=== PATIENT | male | born 1945 | race Caucasian/White ===

== ENCOUNTER 2021-07-16 16:25 | Observation (INO) ==
[2021-07-16] MEDS ORDERED: Mag Hydrox/Al Hydrox/Simeth 30 ML UDC PO PRN (17:58)
[2021-07-16] MEDS ORDERED: Naloxone 0.4 MG/ML INJ IVP PRN (17:58)
[2021-07-16] MEDS ORDERED: Ondansetron ODT 4 MG TAB.RAPDIS SL PRN (17:58)
[2021-07-16] MEDS ORDERED: MOM Conc 10 ML UD.LIQ PO PRN (17:58)
[2021-07-16] MEDS ORDERED: Perflutren Lipid Microsphere 1.3 ML in 0.9 % Sodium Chloride 8.7 ML IVP PRN (18:00)
[2021-07-16] MEDS ORDERED: *HR* Enoxaparin 40 MG/0.4 ML SYRINGE SQ ONE (18:00)
[2021-07-16] MEDS ORDERED: Gabapentin 400 MG CAPSULE PO PRN (18:01)
[2021-07-16] MEDS ORDERED: *HR* HYDROcodone/Acet 5/325 mg TABLET PO PRN (18:01)
[2021-07-16] MEDS ORDERED: tiZANidine 4 MG TABLET PO PRN (18:01)
[2021-07-16] MEDS: *HR* OxyCODONE/APAP 5/325 TABLET PO PRN (19:20)
[2021-07-16] MEDS ORDERED: *HR* Heparin 5,000 UNIT/ML VIAL IVP PRN ×2 (19:23)
[2021-07-16] MEDS ORDERED: *HR* Heparin 5,000 UNIT/ML VIAL IVP ONE (19:23)
[2021-07-16] MEDS ORDERED: Morphine Sulfate 2 MG/ML SYRINGE IVP PRN (19:24)
[2021-07-16] MEDS ORDERED: Heparin 25,000UNIT/250ML 1/2NS 25,000 UNIT/250 ML IV.SOLN IVC SCH (19:30)
[2021-07-16 19:55] LABS: Hematocrit 41.1 % (37.5-50.1); Hemoglobin 13.1 g/dL (12.9-16.9); Mean Corpuscular HGB Conc 31.9 g/dL (31.6-35.5); Mean Corpuscular Hemoglobin 29.9 pg (28.0-33.3); Mean Corpuscular Volume 93.8 fL (83.0-100.0); Mean Platelet Volume 10.7 fL (9.4-12.4); Platelet Count 257 K/mcL (140-400); Red Blood Count 4.38 M/mcL (4.19-5.50); Red Cell Distribution Width 13.2 % (11.5-14.5); White Blood Count 7.4 K/mcL (4.3-11.1)
[2021-07-16 20:02] LABS: Heparin anti-factor XA UFH < 0.04 IU/mL (0.30-0.70)
[2021-07-16 20:03] LABS: INR 0.9; Prothrombin Time 10.4 Seconds (9.4-12.1)
[2021-07-16] MEDS: Melatonin 3 MG TABLET PO PRN (22:50)
[2021-07-17] MEDS: *HR* OxyCODONE/APAP 5/325 TABLET PO PRN ×4 (02:34→21:22)
[2021-07-17 03:24] LABS: Hematocrit 40.8 % (37.5-50.1); Hemoglobin 13.4 g/dL (12.9-16.9); Mean Corpuscular HGB Conc 32.8 g/dL (31.6-35.5); Mean Corpuscular Hemoglobin 30.3 pg (28.0-33.3); Mean Corpuscular Volume 92.3 fL (83.0-100.0); Platelet Count 263 K/mcL (140-400); Red Blood Count 4.42 M/mcL (4.19-5.50); Red Cell Distribution Width 13.2 % (11.5-14.5); White Blood Count 10.1 K/mcL (4.3-11.1)
[2021-07-17 04:02] LABS: Alanine Aminotransferase 17 Units/L (7-52); Albumin/Globulin Ratio 1.9 (1.1-2.2); Alkaline Phosphatase 53 Units/L (34-104); Aspartate Amino Transferase 34 Units/L (13-39); BUN/Creatinine Ratio 22 (6-26); Bilirubin,Total 0.4 mg/dL (0.3-1.0); Blood Urea Nitrogen 22 mg/dL (8-23); Carbon Dioxide 22 mEq/L (23-29); Chloride 109 mEq/L (98-107); Chol/HDL Ratio 3.5 (0-4.9); Cholesterol 229 mg/dL (< 200); Globulin 2.1 g/dL (2.4-3.5); Glucose 99 mg/dL (70-105); HDL Cholesterol 66 mg/dL (40-59); LDL Cholesterol,Calculated 139 mg/dL (< 100); Osmolality,Calculated 293 (280-300); Potassium 4.1 mEq/L (3.5-5.1); Sodium 140 mEq/L (136-145); Total Protein 6.1 g/dL (6.4-8.9); Triglycerides 120 mg/dL (< 150); eGFR For African Americans > 60 (> 60); eGFR For Non-African Americans > 60 (> 60)
[2021-07-17] MEDS: carvediloL 6.25 MG TABLET PO SCH ×2 (08:49→17:18)
[2021-07-17] MEDS: Aspirin 81 MG TAB.CHEW PO SCH (08:49)
[2021-07-17] MEDS ORDERED: *HR* FentaNYL (PF) 100 MCG/2 ML VIAL ONE (11:40)
[2021-07-17] MEDS ORDERED: ISOVUE-370 200 ML INFUS..BTL ONE ×2 (11:41→12:43)
[2021-07-17] MEDS ORDERED: 0.9 % Sodium Chloride 1,000 ML ONE (11:41)
[2021-07-17] MEDS ORDERED: *HR* Heparin 10,000 UNIT/10 ML VIAL ONE (11:41)
[2021-07-17] MEDS ORDERED: Heparin 1,000 UNITS/500 mL 500 ML ONE (11:41)
[2021-07-17] MEDS ORDERED: *HR* Midazolam HCl 2 MG/2 ML VIAL ONE ×2 (11:41→12:37)
[2021-07-17] MEDS ORDERED: Nitroglycerin 1,000 MCG/5 ML VIAL IV ONE (11:41)
[2021-07-17] MEDS ORDERED: *HR* Bivalirudin 250 MG VIAL IVC ONE (12:35)
[2021-07-17] MEDS ORDERED: *HR* Adenosine 6 MG/2 ML VIAL IVP ONE (12:41)
[2021-07-17] MEDS ORDERED: *HR* Atropine Sulfate 1 MG/10 ML SYRINGE ONE (12:45)
[2021-07-17] MEDS ORDERED: 0.9 % Sodium Chloride 1,000 ML IVC SCH (13:45)
[2021-07-17] MEDS: Melatonin 3 MG TABLET PO PRN (21:22)
[2021-07-18] MEDS: *HR* OxyCODONE/APAP 5/325 TABLET PO PRN (03:52)
[2021-07-18 03:54] VITALS: O2SAT 96
[2021-07-18 05:28] LABS: Hematocrit 37.6 % (37.5-50.1); Hemoglobin 12.1 g/dL (12.9-16.9); Mean Corpuscular HGB Conc 32.2 g/dL (31.6-35.5); Mean Corpuscular Volume 93.1 fL (83.0-100.0); Mean Platelet Volume 10.8 fL (9.4-12.4); Platelet Count 231 K/mcL (140-400); Red Blood Count 4.04 M/mcL (4.19-5.50); Red Cell Distribution Width 13.2 % (11.5-14.5); White Blood Count 5.6 K/mcL (4.3-11.1)
[2021-07-18 05:50] LABS: BUN/Creatinine Ratio 15 (6-26); Blood Urea Nitrogen 15 mg/dL (8-23); Calcium 8.3 mg/dL (8.6-10.3); Carbon Dioxide 25 mEq/L (23-29); Chloride 109 mEq/L (98-107); Glucose 89 mg/dL (70-105); Osmolality,Calculated 288 (280-300); Potassium 3.9 mEq/L (3.5-5.1); Sodium 139 mEq/L (136-145); eGFR For African Americans > 60 (> 60); eGFR For Non-African Americans > 60 (> 60)
[2021-07-18 06:59] VITALS: BP 121/66; PULSE 59; TEMP 98.3
[2021-07-18] MEDS: carvediloL 6.25 MG TABLET PO SCH (07:33)
[2021-07-18] MEDS: Aspirin 81 MG TAB.CHEW PO SCH (07:33)
[2021-07-18 09:09] LABS: Estimated Average Glucose 108 mg/dl; Hemoglobin A1C 5.4 %
== END 2021-07-18 11:26 | disposition home or self-care (01) ==
LOC: 3BNU
PROVIDERS: ADMIT Internal Medicine; ATTEND Internal Medicine

== ENCOUNTER 2021-08-15 09:11 | Observation (INO) ==
[2021-08-15] MEDS ORDERED: Aspirin 81 MG TAB.CHEW PO ONE (09:15)
[2021-08-15] MEDS ORDERED: *HR* HYDROcodone/Acet 10/325 mg TABLET PO ONE (09:19)
[2021-08-15 09:47] LABS: Basophils # 0.1 K/mcL (0.0-0.2); Basophils % 0.9 %; Eosinophils # 0.3 K/mcL (0.0-0.6); Eosinophils % 4.2 %; Hematocrit 41.7 % (37.5-50.1); Immature Granulocytes % 0.6 % (0-4); Lymphocytes # 1.1 K/mcL (0.6-4.6); Mean Corpuscular HGB Conc 31.2 g/dL (31.6-35.5); Mean Corpuscular Hemoglobin 29.2 pg (28.0-33.3); Mean Corpuscular Volume 93.7 fL (83.0-100.0); Mean Platelet Volume 10.7 fL (9.4-12.4); Monocytes # 0.7 K/mcL (0.0-1.3); Monocytes % 10.5 %; Neutrophils # 4.3 K/mcL (1.6-8.9); Platelet Count 283 K/mcL (140-400); Red Blood Count 4.45 M/mcL (4.19-5.50); Red Cell Distribution Width 12.9 % (11.5-14.5); Segmented Neutrophils % 66.8 %; White Blood Count 6.5 K/mcL (4.3-11.1)
[2021-08-15 09:57] LABS: Prothrombin Time 10.8 Seconds (9.4-12.1)
[2021-08-15 09:59] LABS: Activated Partial Thrombo Time 33.4 Seconds (26.0-36.0)
[2021-08-15 10:18] LABS: BUN/Creatinine Ratio 24 (6-26); Blood Urea Nitrogen 27 mg/dL (8-23); Calcium 8.8 mg/dL (8.6-10.3); Carbon Dioxide 23 mEq/L (23-29); Chloride 109 mEq/L (98-107); Glucose 105 mg/dL (70-105); Osmolality,Calculated 291 (280-300); Potassium 4.4 mEq/L (3.5-5.1); Sodium 138 mEq/L (136-145); Troponin I < 0.03 ng/mL (< 0.04); eGFR For African Americans > 60 (> 60); eGFR For Non-African Americans > 60 (> 60)
[2021-08-15] MEDS ORDERED: Ondansetron 4 MG/2 ML VIAL IVP PRN (10:30)
[2021-08-15] MEDS ORDERED: Naloxone 0.4 MG/ML INJ IVP PRN (10:30)
[2021-08-15] MEDS ORDERED: Acetaminophen 325 MG TABLET PO PRN (10:30)
[2021-08-15] MEDS ORDERED: carvediloL 6.25 MG TABLET PO SCH (10:33)
[2021-08-15] MEDS: amLODIPine 5 MG TABLET PO SCH (11:22)
[2021-08-15] MEDS ORDERED: *HR* OxyCODONE Immed Rel 5 MG TABLET PO PRN (14:54)
[2021-08-15] MEDS: *HR* OxyCODONE Immed Rel 5 MG TABLET PO PRN ×2 (15:22→20:24)
[2021-08-16] MEDS: carvediloL 6.25 MG TABLET PO SCH ×2 (00:39→07:34)
[2021-08-16] MEDS: *HR* OxyCODONE Immed Rel 5 MG TABLET PO PRN ×2 (00:39→06:15)
[2021-08-16] MEDS ORDERED: *HR* Enoxaparin 40 MG/0.4 ML SYRINGE SQ SCH (06:00)
[2021-08-16 07:25] LABS: Hematocrit 40.5 % (37.5-50.1); Hemoglobin 13.2 g/dL (12.9-16.9); Mean Corpuscular HGB Conc 32.6 g/dL (31.6-35.5); Mean Corpuscular Hemoglobin 29.9 pg (28.0-33.3); Mean Corpuscular Volume 91.6 fL (83.0-100.0); Mean Platelet Volume 10.9 fL (9.4-12.4); Platelet Count 278 K/mcL (140-400); Red Blood Count 4.42 M/mcL (4.19-5.50)
[2021-08-16] MEDS: amLODIPine 5 MG TABLET PO SCH (07:34)
[2021-08-16 08:09] LABS: BUN/Creatinine Ratio 20 (6-26); Blood Urea Nitrogen 21 mg/dL (8-23); Calcium 8.7 mg/dL (8.6-10.3); Carbon Dioxide 22 mEq/L (23-29); Chloride 107 mEq/L (98-107); Glucose 106 mg/dL (70-105); Osmolality,Calculated 291 (280-300); Potassium 4.2 mEq/L (3.5-5.1); Sodium 139 mEq/L (136-145); eGFR For African Americans > 60 (> 60); eGFR For Non-African Americans > 60 (> 60)
[2021-08-16] MEDS ORDERED: Aspirin 81 MG TAB.CHEW PO SCH (09:00)
[2021-08-16] MEDS ORDERED: Ranolazine 500 MG TAB.ER.12H PO SCH (10:15)
[2021-08-16 10:55] VITALS: BP 115/73; PULSE 66; TEMP 97.8; O2SAT 98
== END 2021-08-16 13:11 | disposition home or self-care (01) ==
LOC: EMEROOARM 09:11 → 2ANU 09:11 → SUATTDRO 15:39 → 2ANU 16:47
PROVIDERS: ADMIT Internal Medicine; ATTEND Family Medicine